=== PATIENT | female | born 1975 | race Hispanic/Latino ===

== ENCOUNTER 2020-07-02 19:21 | Inpatient (IN) | payer OTHER ==
[~2020-07-02] VITALS: Ht 152.4 cm; Wt 78.0 kg
--- NOTE | 2020-07-02 21:23 | Emergency Department Note ---
History of Present Illnes History of Present Illness Chief Complaint: General Medicine Complaints History of Present Illness This is a 44 year old female PRESENTS TO ED WITH REPORT OF HGB 5; PT HAD LABS DRAWN YESTERDAY PRIOR TO PAP SMEAR AT [facility] [employer], RECEIVED CALL FROM MD'S OFFICE THIS AFTRNOON TO "GO TO THE ER FOR A BLOOD TRANSFUSION" PER PATIENT; PT STATES SHE HAS HEAVY IRREGULAR MENSTRUAL CYCLES AND HAS REQUIRED A BLOOD TRANSFUSION TWICE IN THE PAST . Historian: Patient Arrival Mode: Car Onset (how long ago): unknown Location: NONE Quality: ANEMIA Radiation: Reports non-radiation Severity: moderate Onset quality: gradual Timing of current episode: unable to specify Chronicity: recurrent Context: Denies recent illness, Denies recent surgery, Denies recent travel Relieving factors: none Exacerbating factors: none Associated symptoms: Reports weakness Treatments prior to arrival: none Past Medical/Family History Physician Review I have reviewed the patient's past medical and family history. Any updates have been documented here. Past Medical History Recent Fever: No Clinical Suspicion of Infectio: No New/Unexplained Change in Ment: No Other Medical History: IRREGULAR MENSTRAUL CYCLES WITH ANEMIA 2 BLOOD TRANSFUSIONS IN THE PAST Past Surgical History: None Social History Smoking Cessation: Never Smoker Alcohol Use: None Any Illegal Drug Use: No Family History Family history of heart diseas: No Review of Systems Review of Systems Constitutional: Reports no symptoms EENTM: Reports no symptoms Cardiovascular: Reports no symptoms Respiratory: Reports no symptoms Gastrointestinal: Reports no symptoms Genitourinary: Reports as per HPI Musculoskeletal: Reports no symptoms Integumentary: Reports no symptoms Neurological: Reports no symptoms Psychological: Reports no symptoms Endocrine: Reports no symptoms Hematological/Lymphatic: Reports no symptoms Physical Exam Related Data Allergies: Coded Allergies: No Known Allergies (Unverified , 07/02/20) Triage Vital Signs Vital Signs Date Time Temp Pulse Resp B/P (MAP) Pulse Ox O2 Delivery O2 Flow Rate FiO2 07/02/20 20:58 99.2 92 17 133/78 100 Room Air Vital signs reviewed: Yes Physical Exam CONSTITUTIONAL Constitutional: Present well-developed, Present well-nourished; Absent distressed HENT HENT: Present normocephalic, Present atraumatic, Present oropharynx clear/moist, Present nose normal HENT L/R: Present left ext ear normal, Present right ext ear normal EYES Eyes: Reports PERRL, Reports other (PALE CONJUNCTIVA) NECK Neck: Present ROM normal PULMONARY Pulmonary: Present effort normal, Present breath sounds normal CARDIOVASCULAR Cardiovascular: Present regular rhythm, Present heart sounds normal, Present capillary refill normal, Present normal rate GASTROINTESTINAL Abdominal: Present soft, Present nontender, Present bowel sounds normal GENITOURINARY Genitourinary: Present exam deferred SKIN Skin: Present warm, Present dry MUSCULOSKELETAL Musculoskeletal: Present ROM normal NEUROLOGICAL Neurological: Present alert, Present oriented x 3, Present no gross motor or sensory deficits PSYCHOLOGICAL Psychological: Present mood/affect normal, Present judgement normal Results Laboratory Laboratory Laboratory Tests Test 07/02/20 21:17 07/02/20 21:03 White Blood Count 6.18 x10e3/uL (4.8-10.8) Red Blood Count 4.14 x10e6/uL (3.6-5.1) Hemoglobin 5.5 g/dL (12.0-16.0) Hematocrit 23.2 % (34.2-44.1) Mean Corpuscular Volume 56.0 fL (81-99) Mean Corpuscular Hemoglobin 13.3 pg (28-32) Mean Corpuscular Hemoglobin Concent 23.7 g/dL (31-35) Red Cell Distribution Width 22.6 % (11.7-14.4) Platelet Count 243 x10e3/uL (140-360) Neutrophils (%) (Auto) 71.1 % (38.7-80.0) Lymphocytes (%) (Auto) 21.5 % (18.0-39.1) Monocytes (%) (Auto) 5.2 % (4.4-11.3) Eosinophils (%) (Auto) 1.6 % (0.0-6.0) Basophils (%) (Auto) 0.3 % (0.0-1.0) Neutrophils # (Auto) 4.4 (2.1-6.9) Lymphocytes # (Auto) 1.3 (1.0-3.2) Monocytes # (Auto) 0.3 (0.2-0.8) Eosinophils # (Auto) 0.1 (0.0-0.4) Basophils # (Auto) 0.0 (0.0-0.1) Absolute Immature Granulocyte (auto 0.02 x10e3/uL (0-0.1) Prothrombin Time 12.6 seconds (11.9-14.5) Prothromb Time International Ratio 0.90 Activated Partial Thromboplast Time 25.7 seconds (23.8-35.5) Sodium Level 139 mmol/L (136-145) Potassium Level 3.3 mmol/L (3.5-5.1) Chloride Level 103 mmol/L (98-107) Carbon Dioxide Level 25 mmol/L (22-29) Anion Gap 14.3 mmol/L (8-16) Blood Urea Nitrogen 9 mg/dL (7-26) Creatinine 0.65 mg/dL (0.57-1.11) Estimat Glomerular Filtration Rate > 60 ML/MIN (60-) BUN/Creatinine Ratio 14 (6-25) Glucose Level 90 mg/dL (74-118) Calcium Level 9.2 mg/dL (8.4-10.2) Total Bilirubin 0.8 mg/dL (0.2-1.2) Aspartate Amino Transf (AST/SGOT) 28 IU/L (5-34) Alanine Aminotransferase (ALT/SGPT) 32 IU/L (0-55) Alkaline Phosphatase 100 IU/L (40-150) Creatine Kinase 15 IU/L (29-168) Creatine Kinase MB 0.30 ng/mL (0-5.0) Troponin I < 0.001 ng/mL (0-0.300) Total Protein 7.6 g/dL (6.5-8.1) Albumin 3.6 g/dL (3.5-5.0) Globulin 4.0 g/dL (2.3-3.5) Albumin/Globulin Ratio 0.9 (0.8-2.0) Human Chorionic Gonadotropin, Qual Negative (NEGATIVE) Lab results reviewed: Yes Imaging Imaging results reviewed: Yes Impressions Procedure: [id number] DX/CHEST 2 VIEWS Exam Date: 07/02/20 Exam Time: 2200 REPORT STATUS: Signed EXAMINATION: CHEST 2 VIEWS INDICATION: ANEMIA COMPARISON: None FINDINGS: TUBES and LINES: None. LUNGS: Normal lung volumes. 2 adjacent nodular densities projecting over the mid left lung measuring 15 and 10 mm respectively. No consolidations. PLEURA: No pleural effusion or pneumothorax. HEART AND MEDIASTINUM: The cardiomediastinal silhouette is unremarkable. BONES AND SOFT TISSUES: No acute osseous lesion. Soft tissues are unremarkable. UPPER ABDOMEN: No free air under the diaphragm. IMPRESSION: 1. 2 adjacent nodular densities projecting over the mid left lung measuring up to 15 mm may represent vessels on end, but pulmonary nodules are not excluded. Comparison with outside imaging to establish stability is recommended. Otherwise, a nonemergent outpatient low-dose chest CT is recommended 2. No consolidation. Signed by: Phoebe Devine MD on 07/02/2020 10:42 PM Dictated By: PHOEBE DEVINE MD 41 Transcribed By: JUANCARLOS on 07/02/202241 COPY TO: CHARLINE ARIZA MD~ Assessment & Plan Medical Decision Making MDM PT WITH REPORTED HGB OF 5 CBC, CMP, TYPE AND SCREEN, PT/PTT, ORDERED TO EVAL FOR ANEMIA, COAGULOPATHY PT WITH HGB OF 5.[address] FRY ADMIT TO OBS, TRANSFUSE 2 UNITS PRBC'S, Assessment & Plan Final Impression: (1) Anemia (2) Symptomatic anemia Depart Disposition: ADMITTED Last Vital Signs Date Time Temp Pulse Resp B/P (MAP) Pulse Ox O2 Delivery O2 Flow Rate FiO2 07/02/20 20:58 99.2 92 17 133/78 100 Room Air CHARLINE ARIZA MD Jul 02, 2020 21:23
[2020-07-02 21:48] LABS: BASOPHILS % 0.3 % (0.0-1.0); EOSINOPHILS # (AUTO) 0.1 (0.0-0.4); EOSINOPHILS % 1.6 % (0.0-6.0); HEMATOCRIT 23.2 % (34.2-44.1); LYMPHOCYTES # (AUTO) 1.3 (1.0-3.2); LYMPHOCYTES % 21.5 % (18.0-39.1); MEAN CORPUSCULAR HEMOGLOBIN 13.3 pg (28-32); MEAN CORPUSCULAR HGB CONC 23.7 g/dL (31-35); MONOCYTES # (AUTO) 0.3 (0.2-0.8); MONOCYTES % 5.2 % (4.4-11.3); NEUTROPHILS # (AUTO) 4.4 (2.1-6.9); NEUTROPHILS % 71.1 % (38.7-80.0); PLATELET COUNT 243 x10e3/uL (140-360); RED BLOOD COUNT 4.14 x10e6/uL (3.6-5.1); RED CELL DISTRIBUTION WIDTH 22.6 % (11.7-14.4)
[2020-07-02 22:18] LABS: INR 0.9; PROTHROMBIN TIME 12.6 seconds (11.9-14.5)
[2020-07-02 22:19] LABS: PARTIAL THROMBOPLASTIN TIME 25.7 seconds (23.8-35.5)
[2020-07-02 22:24] LABS: ALANINE AMINOTRANSFERASE 32 IU/L (0-55); ALBUMIN 3.6 g/dL (3.5-5.0); ALBUMIN/GLOBULIN RATIO 0.9 (0.8-2.0); ALKALINE PHOSPHATASE 100 IU/L (40-150); ANION GAP 14.3 mmol/L (8-16); BLOOD UREA NITROGEN 9 mg/dL (7-26); BUN/CREATININE RATIO 14 (6-25); CALCIUM 9.2 mg/dL (8.4-10.2); CARBON DIOXIDE 25 mmol/L (22-29); CHLORIDE 103 mmol/L (98-107); CREATINE KINASE 15 IU/L (29-168); CREATININE, SERUM 0.65 mg/dL (0.57-1.11); EST GLOMERULAR FILTRATION RATE > 60 ML/MIN (60-); GLUCOSE 90 mg/dL (74-118); POTASSIUM 3.3 mmol/L (3.5-5.1); SODIUM 139 mmol/L (136-145)
[2020-07-02 22:30] VITALS: BP 140/70
[2020-07-02 22:45] LABS: HEMOGLOBIN 5.5 g/dL (12.0-16.0)
--- NOTE | 2020-07-02 22:45 | NUR ---
REPORT RECEIVED FROM ER- 44 YR OLD FEMALE S/P PAP SMEAR HAD ABNORMAL MENSTRAUL BLEEDING AND LOW HGB- 5.5. PT HAS YOUNGER SON WITH HEMOPHELIA. PT WANTING HYSTERECTOMY. 20 G SL RT FA. SITE HEALTHY. PT DENIES PAIN. PT REFUSED PERIPADS STATING NOT HAVING HER MENSES NOW.CALL LIGHT WITHIN REACH. ORIENTED TO ROOM,GREATER [facility], BED IN LOW POSITION.
--- NOTE | 2020-07-02 22:45 | NUR ---
ER NOTIFIED AND AWARE OF CRITICAL LAB VALUES, HGB 5.5 AND HCT 23.2.
--- NOTE | 2020-07-02 22:46 | Diagnostic Imaging Report ---
EXAMINATION: CHEST 2 VIEWS INDICATION: ANEMIA COMPARISON: None FINDINGS: TUBES and LINES: None. LUNGS: Normal lung volumes. 2 adjacent nodular densities projecting over the mid left lung measuring 15 and 10 mm respectively. No consolidations. PLEURA: No pleural effusion or pneumothorax. HEART AND MEDIASTINUM: The cardiomediastinal silhouette is unremarkable. BONES AND SOFT TISSUES: No acute osseous lesion. Soft tissues are unremarkable. UPPER ABDOMEN: No free air under the diaphragm. IMPRESSION: 1. 2 adjacent nodular densities projecting over the mid left lung measuring up to 15 mm may represent vessels on end, but pulmonary nodules are not excluded. Comparison with outside imaging to establish stability is recommended. Otherwise, a nonemergent outpatient low-dose chest CT is recommended 2. No consolidation. Signed by: Tristan Willson MD on 07/02/2020 10:42 PM
[2020-07-02] MEDS ORDERED: SODIUM CHLORIDE 0.9% 250ML 250 ML IV ONE (23:15)
[2020-07-02 23:25] LABS: CLARITY,URINE CLOUDY (CLEAR); COLOR,URINE AMBER (YELLOW); LEUKOCYTE ESTERASE ,URINE TRACE (NEGATIVE)
[2020-07-02 23:26] LABS: NITRITE,URINE NEGATIVE (NEGATIVE)
[2020-07-02 23:28] LABS: BACTERIA,URINE MANY /HPF; BILIRUBIN,URINE SMALL (NEGATIVE); EPITHELIAL CELLS,URINE MANY /LPF; KETONES,URINE TRACE (NEGATIVE); PROTEIN,URINE DIPSTICK 1+ (NEGATIVE); RBC,URINE >50 /HPF (0-5); URINE UROBILINOGEN 1 mg/dL (0.2 - 1); WBC,URINE (MAN) >50 /HPF (0-5)
--- OUTSIDE RECORDS SUMMARY | 2020-07-02 23:39 | XMS REPORT | Continuity of Care Document ---
Author Author [facility] t Organization [facility] Address [phone] Phone Unavailable Care Team Providers Care Wire Products Inspector Name Role Phone Bonnie ARIZA Attphys Unavailable Alphonso Loera Attphys Varsha Bai Attphys Unavailable Gonzalez Schaffer Attphys Unavailable Alphonso Loera Unavailable Payers Payer Name Policy Type Policy Number Effective Date Expiration Date S ource Problems Condition Name Condition Details Condition Category Status Onset Date Resolution Date Last Treatment Date Treating Clinician Comments Source Pap smear Condition Active 2020-07-01 00:00:00 12:17:21 Rafa Loera [email or web address] [facility] Mammogram not high risk screening Condition Active 07-01 00:00:00 2020-07-01 12:17:21 Rafa Loera A [facility] Abnormal uterine bleeding Condition Active 2020-07-01 00: 00:00 2020-07-01 12:17:21 Rafa Loera [facility] 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 Condition Active 2020-07-01 00:00:00 14-07-07 12:17:21 Luz Maria Rafa [email or web address] [facility] Allergies, Adverse Reactions, Alerts Allergy Name Allergy Type Status Severity Reaction(s) Onset Date Inacti ve Date Treating Clinician Comments Source No Known Allergies DA Active U 2017-03-11 00:00:00 [facility] Social History Social Habit Start Date Stop Date Quantity Comments Source drug use, illicit 2020-07-01 11:02:39 2020-07-01 11:02:39 Never [facility] alcohol use 2020-07-01 11:02:39 2020-07-01 11:02:39 Never [facility] passive cigarette smoke exposure 2020-07-01 11:02:39 2020-07-01 11:02 :39 No [facility] if the patient is using/has used a vapin g item, Current, Former, Never Used, Not asked 2020-07-01 11:02:39 2020-07-01 11:02:39 No L [facility] Smoking Status Start Date Stop Date Source Never smoked tobacco (finding) L [facility] Medications Ordered Medication Name Filled Medication Name Start Date Stop Da te Current Medication? Ordering Clinician Indication Dosage Frequency Signature (SIG) Comments Components Source SPRINTEC 28 (NORGESTIMATE-ETH ESTRADIOL) 0.25-35 MG-MCG TABS 2020-07-01 00:00:00 2021-07-01 00:00:00 Yes Rafa A Luz Maria 1 pill da tom po [facility] Vital Signs Vital Name Observation Time Observation Value Comments Source oxygen saturation, oximetry 2020-07-01 11:02:39 99 % [facility] blood pressure, diastolic 2020-07-01 11:02:39 76 mm[Hg] [facility] blood pressure, systolic 2020-07-01 11:02:39 127 mm[Hg] [facility] respiratory rate E&M 2020-07-01 11:02:39 20 /min [facility] pulse rate 2020-07-01 11:02:39 94 /min [facility] 2020-07-01 11:02:39 oral [facility] temperature E&M 2020-07-01 11:02:39 98.3 [degF] Legac y [facility] weight E&M 2020-07-01 11:02:39 174.60 [lb_av] [facility] weight in kilograms E&M 2020-07-01 11:02:39 79.36 kg [facility] height in centimeters E&M 2020-07-01 11:02:39 149.86 cm [facility] Procedures This patient has no known procedures. Encounters Start Date/Time End Date/Time Encounter Type Admission Type Attendi [facility] Care Department Encounter ID Source 2020-07-01 00:00:00 2020-07-01 00:00:00 Office Visit Kendrick Loera [facility] Encounter/[id number] [facility] 2020-07-01 00:00:00 2020-07-01 00:00:00 Office Visit Portia puga Rafa Alphonso BaiVarsha Sonia [facility] Encounter/[id number] [facility] Results Test Description Test Time Test Comments Results Result Comments Source CHEST 2 VIEWS 2020-07-02 22:39:00 [facility] [address] [address] Patient Name: GONZALEZ JEFFERS MR #: [id number] : 1975 Age/Sex: 44/F Req #: [id number] Adm Physician: Ordered by: CHARLINE ARIZA MD Report #: [id number] Location: ER Room/Bed: Procedure: [id number] DX/CHEST 2 VIEWS Exam Date: 07/02/20 Exam Time: 2200 REPORT STATUS: Signed EXAMINATION: CHEST 2 VIEWS INDICATION: ANEMIA COMPARISON: None FINDINGS: TUBES and LINES: None. LUNGS: Normal lung volumes. 2 adjacent nodular densities projecting over the mid left lung measuring 15 and 10 mm respectively. No c onsolidations. PLEURA: No pleural effusion or pneumothorax. HEART AND MEDIASTINUM: The cardiomediastinal silhouette is unremarkable. BONES AND SOFT TISSUES: No acute osseous lesion. Soft tissues are unremarkable. UPPER ABDOMEN: No free air under the diaphragm. IMPRESSION: 1. 2 adjacent nodular densities projecting over the mid left lung measuring up to 15 mm may represent vessels on end, but pulmonary nodules are not excluded. Comparison with outside imaging to establish stability is recommended. Otherwise, a nonemergent outpatient low-dose chest CT is recommended 2. No consolidation. Signed by: Phoebe Devine MD on 07/02/2020 10:42 PM Dictated By: PHOEBE DEVINE MD 41 Transcribed By: JUANCARLOS on 07/02/202241 COPY TO: CHARLINE ARIZA MD BASIC METABOLIC PANEL 2019-06-17 09:06:00 Test Item SODIUM (test code = NA) 141 mmol/L 136-145 N POTASSIUM (test code = K) 3.5 mmol/L 3.5-5.1 N CHLORIDE (test code = CL) 110.0 mmol/L 98-107 H CARBON DIOXIDE (test code = CO2) 25.0 mmol/L 21-32 N ANION GAP (test code = GAP) 9.5 10-20 L GLUCOSE (test code = GLU) 110 mg/dL 74-106 H BLOOD UREA NITROGEN (test code = BUN) 9 mg/dL 7-18 N GLOMERULAR FILTRATION RATE (test code = GFR) > 60 mL/min >=60 Estimated GFR by using Modified MDRD formula.Chronic kidney disease is defined as either kidney damageor GFR <60 mL/min/1.73 m2 for >3 months. CREATININE (test code = CREAT) 0.40 mg/dL 0.55-1.02 L Note change in reference range due to change in reagent. BUN/CREATININE RATIO (test code = BUN/CREA) 21.0 10-20 H CALCIUM (test code = CA) 8.5 mg/dL 8.5-10.1 N PT RECEIVING BLOOD, COME AROUND 0700 PER RN NATALYA V.LAB.1 06/17/[id number] 2019-06-17 09:06:00* Test Item Value Reference Range Interpretation Comments MAGNESIUM (test code = MAG) 2.1 mg/dL 1.8-2.4 N PT RECEIVING BLOOD, COME AROUND 0700 PER RN NATALYA V.LAB.CS1 06/17/[id number] W/AUTO [id number] 09:00:00* Test Item Value Reference Range Interpretation Comments WHITE BLOOD CELL (test code = WBC) 5.3 K/mm3 4.5-12.5 N RED BLOOD CELL (test code = RBC) 4.26 mill/mm3 3.7-5.2 N HEMOGLOBIN (test code = HGB) 7.6 gram/dL 11.5-15.5 L RESULT VERIFIED BY REPEAT ANALYSIS HEMATOCRIT (test code = HCT) 27.6 % 36.0-46.0 L MEAN CELL VOLUME (test code = MCV) 64.8 fL 80-98 L RESULT VERIFIED BY REPEAT ANALYSIS MEAN CELL HGB (test code = MCH) 17.8 picogram 27.0-33.0 L MEAN CELL HGB CONCETRATION (test code = MCHC) 27.5 gram/dL 33.0-36. 0 L RED CELL DISTRIBUTION WIDTH (test code = RDW) 30.2 % 11.6-16. 2 H RED CELL DISTRIBUTION WIDTH SD (test code = RDW-SD) 65.5 fL 37 .0-51.0 H PLATELET COUNT (test code = PLT) 267 K/mm3 150-450 RESULT VERIFIED BY REPEAT ANALYSIS MEAN PLATELET VOLUME (test code = MPV) TEST NOT PERFORMED fL 6.7-11 .0 NEUTROPHIL % (test code = NT%) 67.3 % 39.0-69.0 N IMMATURE GRANULOCYTE % (test code = IG%) 0.4 % 0.0-5.0 N LYMPHOCYTE % (test code = LY%) 24.5 % 25.0-55.0 L MONOCYTE % (test code = MO%) 4.4 % 0.0-10.0 N EOSINOPHIL % (test code = EO%) 3.0 % 0.0-5.0 N BASOPHIL % (test code = BA%) 0.4 % 0.0-1.0 N NUCLEATED RBC % (test code = NRBC%) 0.4 % 0-0 H NEUTROPHIL # (test code = NT#) 3.54 K/mm3 1.8-7.7 N IMMATURE GRANULOCYTE # (test code = IG#) 0.02 x10 3/uL 0-0.03 N LYMPHOCYTE # (test code = LY#) 1.29 K/mm3 1.0-5.0 N MONOCYTE # (test code = MO#) 0.23 K/mm3 0-0.8 N EOSINOPHIL # (test code = EO#) 0.16 K/mm3 0.0-0.5 N BASOPHIL # (test code = BA#) 0.02 K/mm3 0.0-0.2 N NUCLEATED RBC # (test code = NRBC#) 0.02 K/mm3 0.0-0.1 N MANUAL DIFF REQUIRED (test code = MDIFF) NO, ONLY SCAN NEEDED PT RECEIVING BLOOD, COME AROUND 0700 PER SHIRA HOANG V.[facility] 0643 DIFFERENTIAL [id number] 09:00:00* Test Item Value Reference Range Interpretation Comments STAIN ACCEPTABILITY (test code = STN ACCEPTABLE) STAIN ACCEPTABLE HYPOCHROMIA (test code = HYPO) 1+ ANISOCYTOSIS (test code = ANISO) 2+ MICROCYTOSIS (test code = MICR) 2+ PLATELET ESTIMATE (test code = PLTEST) ADEQUATE PLATELET MORPHOLOGY (test code = PLTMORPH) SIZE VARIABLE PT RECEIVING BLOOD, COME AROUND 0700 PER SHIRA HOANG V.[facility] 0643CBC W/AUTO [id number] 08:51:00* Test Item Value Reference Range Interpretation Comments WHITE BLOOD CELL (test code = WBC) 5.3 K/mm3 4.5-12.5 N RED BLOOD CELL (test code = RBC) 4.26 mill/mm3 3.7-5.2 N HEMOGLOBIN (test code = HGB) 7.6 gram/dL 11.5-15.5 L RESULT VERIFIED BY REPEAT ANALYSIS HEMATOCRIT (test code = HCT) 27.6 % 36.0-46.0 L MEAN CELL VOLUME (test code = MCV) 64.8 fL 80-98 L RESULT VERIFIED BY REPEAT ANALYSIS MEAN CELL HGB (test code = MCH) 17.8 picogram 27.0-33.0 L MEAN CELL HGB CONCETRATION (test code = MCHC) 27.5 gram/dL 33.0-36. 0 L RED CELL DISTRIBUTION WIDTH (test code = RDW) 30.2 % 11.6-16. 2 H RED CELL DISTRIBUTION WIDTH SD (test code = RDW-SD) 65.5 fL 37 .0-51.0 H PLATELET COUNT (test code = PLT) 267 K/mm3 150-450 RESULT VERIFIED BY REPEAT ANALYSIS MEAN PLATELET VOLUME (test code = MPV) TEST NOT PERFORMED fL 6.7-11 .0 NEUTROPHIL % (test code = NT%) 67.3 % 39.0-69.0 N IMMATURE GRANULOCYTE % (test code = IG%) 0.4 % 0.0-5.0 N LYMPHOCYTE % (test code = LY%) 24.5 % 25.0-55.0 L MONOCYTE % (test code = MO%) 4.4 % 0.0-10.0 N EOSINOPHIL % (test code = EO%) 3.0 % 0.0-5.0 N BASOPHIL % (test code = BA%) 0.4 % 0.0-1.0 N NUCLEATED RBC % (test code = NRBC%) 0.4 % 0-0 H NEUTROPHIL # (test code = NT#) 3.54 K/mm3 1.8-7.7 N IMMATURE GRANULOCYTE # (test code = IG#) 0.02 x10 3/uL 0-0.03 N LYMPHOCYTE # (test code = LY#) 1.29 K/mm3 1.0-5.0 N MONOCYTE # (test code = MO#) 0.23 K/mm3 0-0.8 N EOSINOPHIL # (test code = EO#) 0.16 K/mm3 0.0-0.5 N BASOPHIL # (test code = BA#) 0.02 K/mm3 0.0-0.2 N NUCLEATED RBC # (test code = NRBC#) 0.02 K/mm3 0.0-0.1 N MANUAL DIFF REQUIRED (test code = MDIFF) NO, ONLY SCAN NEEDED PT RECEIVING BLOOD, COME AROUND 0700 PER RN NATALYA V.LAB.CS 0643 DIFFERENTIAL [id number] 08:51:00* Test Item Value Reference Range Interpretation Comments STAIN ACCEPTABILITY (test code = STN ACCEPTABLE) CABOT RINGS (test code = CAB) MORPHOLOGY COMMENT (test code = MOC) PLATELET ESTIMATE (test code = PLTEST) PLATELET MORPHOLOGY (test code = PLTMORPH) PT RECEIVING BLOOD, COME AROUND 0700 PER SHIRA HOANG V.LAB.CS 0643CBC W/AUTO [id number] 08:51:00* Test Item Value Reference Range Interpretation Comments WHITE BLOOD CELL (test code = WBC) 5.3 K/mm3 4.5-12.5 N RED BLOOD CELL (test code = RBC) 4.26 mill/mm3 3.7-5.2 N HEMOGLOBIN (test code = HGB) 7.6 gram/dL 11.5-15.5 L RESULT VERIFIED BY REPEAT ANALYSIS HEMATOCRIT (test code = HCT) 27.6 % 36.0-46.0 L MEAN CELL VOLUME (test code = MCV) 64.8 fL 80-98 L RESULT VERIFIED BY REPEAT ANALYSIS MEAN CELL HGB (test code = MCH) 17.8 picogram 27.0-33.0 L MEAN CELL HGB CONCETRATION (test code = MCHC) 27.5 gram/dL 33.0-36. 0 L RED CELL DISTRIBUTION WIDTH (test code = RDW) 30.2 % 11.6-16. 2 H RED CELL DISTRIBUTION WIDTH SD (test code = RDW-SD) 65.5 fL 37 .0-51.0 H PLATELET COUNT (test code = PLT) 267 K/mm3 150-450 RESULT VERIFIED BY REPEAT ANALYSIS MEAN PLATELET VOLUME (test code = MPV) TEST NOT PERFORMED fL 6.7-11 .0 NEUTROPHIL % (test code = NT%) 67.3 % 39.0-69.0 N IMMATURE GRANULOCYTE % (test code = IG%) 0.4 % 0.0-5.0 N LYMPHOCYTE % (test code = LY%) 24.5 % 25.0-55.0 L MONOCYTE % (test code = MO%) 4.4 % 0.0-10.0 N EOSINOPHIL % (test code = EO%) 3.0 % 0.0-5.0 N BASOPHIL % (test code = BA%) 0.4 % 0.0-1.0 N NUCLEATED RBC % (test code = NRBC%) 0.4 % 0-0 H NEUTROPHIL # (test code = NT#) 3.54 K/mm3 1.8-7.7 N IMMATURE GRANULOCYTE # (test code = IG#) 0.02 x10 3/uL 0-0.03 N LYMPHOCYTE # (test code = LY#) 1.29 K/mm3 1.0-5.0 N MONOCYTE # (test code = MO#) 0.23 K/mm3 0-0.8 N EOSINOPHIL # (test code = EO#) 0.16 K/mm3 0.0-0.5 N BASOPHIL # (test code = BA#) 0.02 K/mm3 0.0-0.2 N NUCLEATED RBC # (test code = NRBC#) 0.02 K/mm3 0.0-0.1 N MANUAL DIFF REQUIRED (test code = MDIFF) NO, ONLY SCAN NEEDED PT RECEIVING BLOOD, COME AROUND 0700 PER RN NATALYA V.LAB.107 0643 DIFFERENTIAL [id number] 08:51:00* Test Item Value Reference Range Interpretation Comments STAIN ACCEPTABILITY (test code = STN ACCEPTABLE) MORPHOLOGY COMMENT (test code = MOC) PLATELET ESTIMATE (test code = PLTEST) PLATELET MORPHOLOGY (test code = PLTMORPH) PT RECEIVING BLOOD, COME AROUND 0700 PER RN NATALYA V.LAB.107 0643CBC W/AUTO [id number] 08:51:00* Test Item Value Reference Range Interpretation Comments WHITE BLOOD CELL (test code = WBC) 5.3 K/mm3 4.5-12.5 N RED BLOOD CELL (test code = RBC) 4.26 mill/mm3 3.7-5.2 N HEMOGLOBIN (test code = HGB) 7.6 gram/dL 11.5-15.5 L RESULT VERIFIED BY REPEAT ANALYSIS HEMATOCRIT (test code = HCT) 27.6 % 36.0-46.0 L MEAN CELL VOLUME (test code = MCV) 64.8 fL 80-98 L RESULT VERIFIED BY REPEAT ANALYSIS MEAN CELL HGB (test code = MCH) 17.8 picogram 27.0-33.0 L MEAN CELL HGB CONCETRATION (test code = MCHC) 27.5 gram/dL 33.0-36. 0 L RED CELL DISTRIBUTION WIDTH (test code = RDW) 30.2 % 11.6-16. 2 H RED CELL DISTRIBUTION WIDTH SD (test code = RDW-SD) 65.5 fL 37 .0-51.0 H PLATELET COUNT (test code = PLT) 267 K/mm3 150-450 RESULT VERIFIED BY REPEAT ANALYSIS MEAN PLATELET VOLUME (test code = MPV) TEST NOT PERFORMED fL 6.7-11 .0 NEUTROPHIL % (test code = NT%) 67.3 % 39.0-69.0 N IMMATURE GRANULOCYTE % (test code = IG%) 0.4 % 0.0-5.0 N LYMPHOCYTE % (test code = LY%) 24.5 % 25.0-55.0 L MONOCYTE % (test code = MO%) 4.4 % 0.0-10.0 N EOSINOPHIL % (test code = EO%) 3.0 % 0.0-5.0 N BASOPHIL % (test code = BA%) 0.4 % 0.0-1.0 N NUCLEATED RBC % (test code = NRBC%) 0.4 % 0-0 H NEUTROPHIL # (test code = NT#) 3.54 K/mm3 1.8-7.7 N IMMATURE GRANULOCYTE # (test code = IG#) 0.02 x10 3/uL 0-0.03 N LYMPHOCYTE # (test code = LY#) 1.29 K/mm3 1.0-5.0 N MONOCYTE # (test code = MO#) 0.23 K/mm3 0-0.8 N EOSINOPHIL # (test code = EO#) 0.16 K/mm3 0.0-0.5 N BASOPHIL # (test code = BA#) 0.02 K/mm3 0.0-0.2 N NUCLEATED RBC # (test code = NRBC#) 0.02 K/mm3 0.0-0.1 N MANUAL DIFF REQUIRED (test code = MDIFF) NO, ONLY SCAN NEEDED PT RECEIVING BLOOD, COME AROUND 0700 PER SHIRA ReddyLAB. 0643 DIFFERENTIAL [id number] 08:51:00* Test Item Value Reference Range Interpretation Comments STAIN ACCEPTABILITY (test code = STN ACCEPTABLE) MORPHOLOGY COMMENT (test code = MOC) PLATELET ESTIMATE (test code = PLTEST) PLATELET MORPHOLOGY (test code = PLTMORPH) PT RECEIVING BLOOD, COME AROUND 0700 PER SHIRA ReddyLAB. 0643CBC W/AUTO [id number] 08:51:00* Test Item Value Reference Range Interpretation Comments WHITE BLOOD CELL (test code = WBC) 5.3 K/mm3 4.5-12.5 N RED BLOOD CELL (test code = RBC) 4.26 mill/mm3 3.7-5.2 N HEMOGLOBIN (test code = HGB) 7.6 gram/dL 11.5-15.5 L RESULT VERIFIED BY REPEAT ANALYSIS HEMATOCRIT (test code = HCT) 27.6 % 36.0-46.0 L MEAN CELL VOLUME (test code = MCV) 64.8 fL 80-98 L RESULT VERIFIED BY REPEAT ANALYSIS MEAN CELL HGB (test code = MCH) 17.8 picogram 27.0-33.0 L MEAN CELL HGB CONCETRATION (test code = MCHC) 27.5 gram/dL 33.0-36. 0 L RED CELL DISTRIBUTION WIDTH (test code = RDW) 30.2 % 11.6-16. 2 H RED CELL DISTRIBUTION WIDTH SD (test code = RDW-SD) 65.5 fL 37 .0-51.0 H PLATELET COUNT (test code = PLT) 267 K/mm3 150-450 RESULT VERIFIED BY REPEAT ANALYSIS MEAN PLATELET VOLUME (test code = MPV) TEST NOT PERFORMED fL 6.7-11 .0 NEUTROPHIL % (test code = NT%) 67.3 % 39.0-69.0 N IMMATURE GRANULOCYTE % (test code = IG%) 0.4 % 0.0-5.0 N LYMPHOCYTE % (test code = LY%) 24.5 % 25.0-55.0 L MONOCYTE % (test code = MO%) 4.4 % 0.0-10.0 N EOSINOPHIL % (test code = EO%) 3.0 % 0.0-5.0 N BASOPHIL % (test code = BA%) 0.4 % 0.0-1.0 N NUCLEATED RBC % (test code = NRBC%) 0.4 % 0-0 H NEUTROPHIL # (test code = NT#) 3.54 K/mm3 1.8-7.7 N IMMATURE GRANULOCYTE # (test code = IG#) 0.02 x10 3/uL 0-0.03 N LYMPHOCYTE # (test code = LY#) 1.29 K/mm3 1.0-5.0 N MONOCYTE # (test code = MO#) 0.23 K/mm3 0-0.8 N EOSINOPHIL # (test code = EO#) 0.16 K/mm3 0.0-0.5 N BASOPHIL # (test code = BA#) 0.02 K/mm3 0.0-0.2 N NUCLEATED RBC # (test code = NRBC#) 0.02 K/mm3 0.0-0.1 N MANUAL DIFF REQUIRED (test code = MDIFF) NO, ONLY SCAN NEEDED PT RECEIVING BLOOD, COME AROUND 0700 PER SHIRA ReddyLAB.CS107/24/19 0643 DIFFERENTIAL [id number] 08:51:00* Test Item Value Reference Range Interpretation Comments STAIN ACCEPTABILITY (test code = STN ACCEPTABLE) CABOT RINGS (test code = CAB) MORPHOLOGY COMMENT (test code = MOC) PLATELET ESTIMATE (test code = PLTEST) PLATELET MORPHOLOGY (test code = PLTMORPH) PT RECEIVING BLOOD, COME AROUND 0700 PER SHIRA CHARLES.CS107/ 0643- CT ABD PELVIS [id number] 18:48:00 Name: GONZALEZ JEFFERS [facility] : 1975 Age/S: 43 / F [address] [facility] Unit #: [id number] Loc: LILO Singh [address] Phys: Flor Santa NP Acct: [id number] Dis Date: Status: REG ER PHONE #: [phone] Exam Date: 06/16/2019 1701 FAX #: [phone] Reason: RLQA pain EXAMS: CPT CODE: [id number] CT ABD PELVIS W/CONT [id number] REASON FOR EXAM: RLQA pain EXAM ORDER DATE: 06/16/2019 12:15 PM Ordering M.D.: Flor Santa NP PROCEDURE: - CT ABD PELVIS W/CONT contrast-enhanced axial CT images were acquired through the abdomen/pelvis at 5 mm intervals. Sagittal and coronal reformatted images were generated. Automated exposure control was utilized for this reduction. Phases of contrast: venous and delayed COMPARISON: Pelvic ultrasound earlier today at 1:26 PM FINDINGS: Visualized thorax: Normal Hepatobiliary system: Cholelithiasis. No pericholecystic fluid or gallbladder wall thickening to suggest cholecystitis. Pancreas: Normal Spleen: Normal Adrenal glands: Normal Genitourinary system: Hypodense cortical lesion in the left kidney measuring up to 2.2 x 1.5 cm cross-sectionally. The density of this lesion measures approximately 43 Hounsfield units which is unchanged between the venous and delayed phase imaging. This is greater than expected for a simple cyst however the stability of the density suggests that there is no contrast enhancement or washout. This may represent a hemorrhagic cyst. The rest of the genitourinary structures are grossly within normal limits. Gastrointestinal tract and appendix: Normal. Specifically the appendix, ascending colon, and the cecum are within normal limits. 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 No omental or mesenteric masses. No abnormal lymph nodes. 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 Left renal cortical hypodensity with no change in density from the venous to the delayed images. This may represent a hemorrhagic cyst. This can be fur ther evaluated with a renal ultrasound and/or renal protocol CT scan on a nonemergent basis. Electronically Signed by Yaniv Garcia MD on 05/26 at 1848 Reported and signed by: Yaniv Garcia MD CC: Flor Santa NP Technologist:RT WALTER(R) CT CTDI: DLP: Trnsc b Date/Time: 06/16/2019 (1847) [email or web address] Orig Print D/T: S: 06/16/2019 (1850) PAGE 2 Signed Report CBC W/O [id number] 15:20:00* Test Item Value Reference Range Interpretation Comments WHITE BLOOD CELL (test code = WBC) 5.6 K/mm3 4.5-12.5 N RED BLOOD CELL (test code = RBC) 3.93 mill/mm3 3.7-5.2 N HEMOGLOBIN (test code = HGB) 5.3 gram/dL 11.5-15.5 L HEMATOCRIT (test code = HCT) 22.6 % 36.0-46.0 L MEAN CELL VOLUME (test code = MCV) 57.5 fL 80-98 L MEAN CELL HGB (test code = MCH) 13.5 picogram 27.0-33.0 L MEAN CELL HGB CONCETRATION (test code = MCHC) 23.5 gram/dL 33.0-36. 0 L RED CELL DISTRIBUTION WIDTH (test code = RDW) 22.0 % 11.6-16. 2 H PLATELET COUNT (test code = PLT) 331 K/mm3 150-450 N MEAN PLATELET VOLUME (test code = MPV) TEST NOT PERFORMED fL 6.7-11 .0 BASIC METABOLIC [id number] 14:44:00* Test Item Value Reference Range Interpretation Comments SODIUM (test code = NA) 141 mmol/L 136-145 N POTASSIUM (test code = K) 3.7 mmol/L 3.5-5.1 N CHLORIDE (test code = CL) 109.0 mmol/L 98-107 H CARBON DIOXIDE (test code = CO2) 26.0 mmol/L 21-32 N ANION GAP (test code = GAP) 9.7 10-20 L GLUCOSE (test code = GLU) 94 mg/dL 74-106 N BLOOD UREA NITROGEN (test code = BUN) 11 mg/dL 7-18 N GLOMERULAR FILTRATION RATE (test code = GFR) > 60 mL/min >=60 Estimated GFR by using Modified MDRD formula.Chronic kidney disease is defined as either kidney damageor GFR <60 mL/min/1.73 m2 for >3 months. CREATININE (test code = CREAT) 0.60 mg/dL 0.55-1.02 N Note change in reference range due to change in reagent. BUN/CREATININE RATIO (test code = BUN/CREA) 19.8 10-20 N CALCIUM (test code = CA) 8.8 mg/dL 8.5-10.1 N HEPATIC FUNCTION [id number] 14:44:00* Test Item Value Reference Range Interpretation Comments TOTAL PROTEIN (test code = PROT) 7.5 gram/dL 6.4-8.2 N ALBUMIN (test code = ALB) 3.5 g/dL 3.4-5.0 N GLOBULIN (test code = GLOB) 4.0 gram/dL 2.7-4.2 N ALBUMIN/GLOBULIN RATIO (test code = A/G) 0.9 0.75-1.50 N BILIRUBIN TOTAL (test code = BILT) 0.70 mg/dL 0.0-1.0 N BILIRUBIN DIRECT (test code = BILD) 0.21 mg/dL 0.0-0.20 H SGOT/AST (test code = AST) 10 IUnit/L 15-37 L SGPT/ALT (test code = ALT) 18 IUnit/L 12-78 N ALKALINE PHOSPHATASE TOTAL (test code = ALKP) 95 IUnit/L 45-117 N Note change in reference range due to change in reagent. [id number] 14:44:00* Test Item Value Reference Range Interpretation Comments LIPASE (test code = LIP) 36 U/L 73.0-393.0 L HCG SERUM [id number] 14:44:00* Test Item Value Reference Range Interpretation Comments HCG SERUM QUAL (test code = HCGQL) NEGATIVE NEGATIVE This HCGQL test is NOT applicable for MALE patients.Check with nurse about probable order error.If Tumor Marker Test needed, nurse should order test "HCGTU"(Test #550.16620) BASIC METABOLIC [id number] 14:27:00* Test Item Value Reference Range Interpretation Comments SODIUM (test code = NA) 141 mmol/L 136-145 N POTASSIUM (test code = K) 3.7 mmol/L 3.5-5.1 N CHLORIDE (test code = CL) 109.0 mmol/L 98-107 H CARBON DIOXIDE (test code = CO2) mmol/L 21-32 ANION GAP (test code = GAP) 10-20 GLUCOSE (test code = GLU) mg/dL 74-106 BLOOD UREA NITROGEN (test code = BUN) mg/dL 7-18 GLOMERULAR FILTRATION RATE (test code = GFR) mL/min >=60 CREATININE (test code = CREAT) mg/dL 0.55-1.02 BUN/CREATININE RATIO (test code = BUN/CREA) 10-20 CALCIUM (test code = CA) mg/dL 8.5-10.1 HEPATIC FUNCTION [id number] 14:27:00* Test Item Value Reference Range Interpretation Comments TOTAL PROTEIN (test code = PROT) gram/dL 6.4-8.2 ALBUMIN (test code = ALB) g/dL 3.4-5.0 GLOBULIN (test code = GLOB) gram/dL 2.7-4.2 ALBUMIN/GLOBULIN RATIO (test code = A/G) 0.75-1.50 BILIRUBIN TOTAL (test code = BILT) mg/dL 0.0-1.0 BILIRUBIN DIRECT (test code = BILD) mg/dL 0.0-0.20 SGOT/AST (test code = AST) IUnit/L 15-37 SGPT/ALT (test code = ALT) IUnit/L 12-78 ALKALINE PHOSPHATASE TOTAL (test code = ALKP) IUnit/L 45-117 [id number] 14:27:00* Test Item Value Reference Range Interpretation Comments LIPASE (test code = LIP) U/L 73.0-393.0 HCG SERUM [id number] 14:27:00* Test Item Value Reference Range Interpretation Comments HCG SERUM QUAL (test code = HCGQL) NEGATIVE NEGATIVE This HCGQL test is NOT applicable for MALE patients.Check with nurse about probable order error.If Tumor Marker Test needed, nurse should order test "HCGTU"(Test #550.97015) - [place] TRANSVAGINAL NON [id number] 14:27:00 Name: GONZALEZ JEFFERS [facility] : 1975 Age/S: 43 / F [address] [facility] Unit #: [id number] Loc: [place] [address] Phys: Flor Santa NP Acct: [id number] Dis Date: Status: REG ER PHONE #: [phone] Exam Date: 06/16/2019 9580 FAX #: [phone] Reason: Pelvic Pain EXAMS: CPT CODE: [id number] [place] [address] HISTORY: Endovaginal bleeding. COMPARISON: Ultrasound from March 11, 2017. Transabdominal and transvaginal (for better endometrial and ovarian evaluation) pelvic ultrasound with color and Doppler flow and grayscale imaging. Anteverted uterus measured 10 x 6 x 6.6 cm. Heterogeneous echogenicity and coarse texture. No discrete fibroids. Endometrial thickness measured at 2.4 cm. No IUP noted. Visualized portions of the cervix are normal. Color and Doppler flow in either ovary with normal spectral waveform. Right ovary measured 2.1 x 1 x 2.1 cm. Left ovary with multiple follicles measured 2 x 2.6 x 2 cm. No free fluid IMPRESSION: Moderately thickened endometrium at 2.4 cm. No IUP. No fibroids. Color and Doppler flow in either ovary with normal spectral waveform. at 1427 Reported and signed by: Asa Schmidt M.D. CC: Flor Santa NP Technologist: MARSHALL KEENAN RT(R),RDMS Trnnyb Date/Time: 019 (1422) t.SDR.TH4 Orig Print D/T: S: 06/16/2019 (0794) Probe: [id number] PAGE 1 Signed Report - DUP AB/PEL/SC [id number] 14:27:00 Name: GONZALEZ JEFFERS [facility] : 1975 Age/S: 43 / F [address] [facility] Unit #: [id number] Loc: [place] [address] Phys: Kristina Santa NP Acct: [id number] Di s Date: Status: REG ER PHONE #: Exam Date: 06/16/2019 1358 FAX #: Reason: PELVIC PAIN EXAMS: CPT CODE: [id number] DUP AB/PEL/SC COMP 06690 HISTORY: Endovaginal blee ding. COMPARISON: Ultrasound from March 11, 2017. Tr ansabdominal and transvaginal (for better endometrial and ovarian evaluati on) pelvic ultrasound with color and Doppler flow and grayscale imaging. Anteverted uterus measured 10 x 6 x 6.6 cm. Heterogeneous echogenic ity and coarse texture. No discrete fibroids. Endometrial thickness measured at 2.4 cm. No IUP noted. Visualized portions of the cervix are no rmal. Color and Doppler flow in either ovary with normal spectral waveform. Right ovary measured 2.1 x 1 x 2.1 cm. Left ovary with multiple follicles measured 2 x 2.6 x 2 cm. No free fluid IMPRESSIO N: Moderately thickened endometrium at 2.4 cm. No IUP. No fibr oids. Color and Doppler flow in either ovary with normal spectral wavefo rm. at 1427 Reported and signed by: Asa Schmidt M.D. CC: Flor Santa NP Technologist: MARSHALL KEENAN RT(R),RDMS Trnnyb Date/Time: 019 (8627) t.SDR.TH4 Orig Print D/T: S: 06/16/2019 (7106) Probe: PAGE 1 Signed Report BASIC METABOLIC [id number] 14:26:00* Test Item Value Reference Range Interpretation Comments SODIUM (test code = NA) mmol/L 136-145 POTASSIUM (test code = K) mmol/L 3.5-5.1 CHLORIDE (test code = CL) mmol/L 98-107 CARBON DIOXIDE (test code = CO2) mmol/L 21-32 ANION GAP (test code = GAP) 10-20 GLUCOSE (test code = GLU) mg/dL 74-106 BLOOD UREA NITROGEN (test code = BUN) mg/dL 7-18 GLOMERULAR FILTRATION RATE (test code = GFR) mL/min >=60 CREATININE (test code = CREAT) mg/dL 0.55-1.02 BUN/CREATININE RATIO (test code = BUN/CREA) 10-20 CALCIUM (test code = CA) mg/dL 8.5-10.1 HEPATIC FUNCTION [id number] 14:26:00* Test Item Value Reference Range Interpretation Comments TOTAL PROTEIN (test code = PROT) gram/dL 6.4-8.2 ALBUMIN (test code = ALB) g/dL 3.4-5.0 GLOBULIN (test code = GLOB) gram/dL 2.7-4.2 ALBUMIN/GLOBULIN RATIO (test code = A/G) 0.75-1.50 BILIRUBIN TOTAL (test code = BILT) mg/dL 0.0-1.0 BILIRUBIN DIRECT (test code = BILD) mg/dL 0.0-0.20 SGOT/AST (test code = AST) IUnit/L 15-37 SGPT/ALT (test code = ALT) IUnit/L 12-78 ALKALINE PHOSPHATASE TOTAL (test code = ALKP) IUnit/L 45-117 [id number] 14:26:00* Test Item Value Reference Range Interpretation Comments LIPASE (test code = LIP) U/L 73.0-393.0 HCG SERUM [id number] 14:26:00* Test Item Value Reference Range Interpretation Comments HCG SERUM QUAL (test code = HCGQL) NEGATIVE NEGATIVE This HCGQL test is NOT applicable for MALE patients.Check with nurse about probable order error.If Tumor Marker Test needed, nurse should order test "HCGTU"(Test #[id number]) - US PELVIS [id number] 14:20:00 Name: GONZALEZ JEFFERS [facility] : 1975 Age/S: 43 / F [address] [facility] Unit #: [id number] Loc: [place] [address] Phys: Flor Santa NP Acct: [id number] Dis Date: Status: REG ER PHONE #: [phone] Exam Date: 06/16/2019 4613 FAX #: [phone] Reason: PELVIC PAIN EXAMS: CPT CODE: [id number] US PELVIS COMPLETE 05154 HISTORY: Endovaginal bleeding. COMPARISON: Ultrasound from March 11, 2017. Transabdominal and transvaginal (for better endometrial and ovarian evaluation) pelvic ultrasound with color and Doppler flow and grayscale imaging. Anteverted uterus measured 10 x 6 x 6.6 cm. Heterogeneous echogenicity and coarse texture. No discrete fibroids. Endometrial thickness measured at 2.4 cm. No IUP noted. Visualized portions of the cervix are normal. Color and Doppler flow in either ovary with normal spectral waveform. Right ovary measured 2.1 x 1 x 2.1 cm. Left ovary with multiple follicles measured 2 x 2.6 x 2 cm. No free fluid IMPRESSION: Moderately thickened endometrium at 2.4 cm. No IUP. No fibroids. Color and Doppler flow in either ovary with normal spectral waveform. at 1420 Reported and signed by: Asa Schmidt M.D. CC: Flor Santa NP Technologist: MARSHALL KEENAN RT(R),[facility]SO [facility] Date/Time: 019 (1420) t.SUMEETR.TH4 Orig Print D/T: S: 06/16/2019 (7790) Probe: PAGE 1 Signed Report
--- OUTSIDE RECORDS SUMMARY | 2020-07-02 23:39 | XMS REPORT ---
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 Rafa A Luz Maria ENCOUNTERS Date Type Provider Location Encounter Diagn osis - Ambulatory Encounter Rafa A Luz Maria Rafa A Luz Maria UNK - Ambulatory Encounter Rafa A Luz Maria Rafa A Luz Maria Varsha Schaffer System Operation Superintendent annual examMammog aisha not high risk screeningMammogram not high risk screeningAbnormal uterine bleedingMammogram not high risk screeningPap smear VITAL SIGNS Date Observation Value Provider oxygen saturation, oximetry 99 % Shirley a Sarbjit " method used to obtain blood pressure automatic Teresa Schaffer " Blood Pressure Position 01 sitting Teresa Schaffer " blood pressure, site #1 left arm Teresa galaviz " blood pressure, diastolic 76 mm[Hg] Teresa Schaffer " blood pressure, systolic 127 mm[Hg] Teresa V walterazquez " respiratory rate E&M 20 /min Teresa Delon joseph " pulse rate 94 /min Teresa Schaffer " temperature site oral Teresa Sarbjit " temperature E&M 98.3 [degF] Teresa Schaffer " weight E&M 174.60 lbs. Teresa Schaffer " weight in kilograms E&M 79.36 kg Teresa galaviz " height E&M 59 [in_i] Teresa Schaffer " height in centimeters E&M 149.86 cm Teresa Schaffer Allergies No Known Allergy Information REASON FOR REFERRAL Start Date - End Date Service - Ultrasound - Pelvic/Transvag inal - Mammogram - Screening RESULTS No Information Available HISTORY OF IMMUNIZATIONS No Information Available HISTORY OF MEDICATION USE Medication Instructions Dates Provider Comments SPRINTEC 28 0.25-35 MG-MCG ORAL TABLET 1 pill daily po 7 - Rafa Werner Luz Maria SOCIAL HISTORY Date Observation Value Provider drug use, illicit Never Teresa grey " alcohol use Never Teresa Schaffer " passive cigarette smoke exposure No Teresa Schaffer " if the patient is using/has used a vaping item, Current, Former, Never Used, Not asked No Teresa Schaffer " smoking status never smoker Teresa Schaffer FUNCTIONAL STATUS No Information Available MENTAL STATUS No Information Available MEDICAL EQUIPMENT No Information Available FAMILY HISTORY No Information Available INSURANCE PROVIDERS No Information Available ADVANCE DIRECTIVES No Information Available TREATMENT PLAN Date Name Pap w/HPV w rflx 16/18/45 (3 0+) TSH Rfx on Abnormal to Free T4 CBC With Differential/Platel et - - Est Patient Well Exam (40 - 64 Yrs) - [address] HISTORY OF PROCEDURES No Information Available GOALS No Information Available HEALTH CONCERNS No Information Available
--- OUTSIDE RECORDS SUMMARY | 2020-07-02 23:45 | XMS REPORT | Continuity of Care Document ---
Author Author [facility] t Organization [facility] Address [address] [place] [address] Phone Unavailable Care Team Providers Care Tile Helper Name Role Phone Bonnie ARIZA Attphys Unavailable Alphonso Loera Attphys Varsha Bai Attphys Unavailable Gonzalez Schaffer Attphys Unavailable Alphonso Loera Unavailable Payers Payer Name Policy Type Policy Number Effective Date Expiration Date S ource Problems Condition Name Condition Details Condition Category Status Onset Date Resolution Date Last Treatment Date Treating Clinician Comments Source Pap smear Condition Active 2020-07-01 00:00:00 12:17:21 Rafa Loera Basha [facility] Mammogram not high risk screening Condition Active 07-01 00:00:00 2020-07-01 12:17:21 Rafa Loera A [facility] Abnormal uterine bleeding Condition Active 2020-07-01 00: 00:00 2020-07-01 12:17:21 Rafa Loera [facility] 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 Condition Active 2020-07-01 00:00:00 14-07-07 12:17:21 Luz Maria Rafa Basha [facility] Allergies, Adverse Reactions, Alerts Allergy Name Allergy Type Status Severity Reaction(s) Onset Date Inacti ve Date Treating Clinician Comments Source No Known Allergies DA Active U 2017-03-11 00:00:00 [facility] Social History Social Habit Start Date Stop Date Quantity Comments Source drug use, illicit 2020-07-01 11:02:39 2020-07-01 11:02:39 Never [facility] alcohol use 2020-07-01 11:02:39 2020-07-01 11:02:39 Never [facility] passive cigarette smoke exposure 2020-07-01 11:02:39 2020-07-01 11:02 :39 No [facility] if the patient is using/has used a vapin g item, Current, Former, Never Used, Not asked 2020-07-01 11:02:39 2020-07-01 11:02:39 No L [facility] Smoking Status Start Date Stop Date Source Never smoked tobacco (finding) L [facility] Medications Ordered Medication Name Filled Medication Name Start Date Stop Da te Current Medication? Ordering Clinician Indication Dosage Frequency Signature (SIG) Comments Components Source SPRINTEC 28 (NORGESTIMATE-ETH ESTRADIOL) 0.25-35 MG-MCG TABS 2020-07-01 00:00:00 2021-07-01 00:00:00 Yes Rafa A Luz Maria 1 pill da tom po [facility] Vital Signs Vital Name Observation Time Observation Value Comments Source oxygen saturation, oximetry 2020-07-01 11:02:39 99 % [facility] blood pressure, diastolic 2020-07-01 11:02:39 76 mm[Hg] [facility] blood pressure, systolic 2020-07-01 11:02:39 127 mm[Hg] [facility] respiratory rate E&M 2020-07-01 11:02:39 20 /min [facility] pulse rate 2020-07-01 11:02:39 94 /[facility] 2020-07-01 11:02:39 oral Lega [facility] temperature E&M 2020-07-01 11:02:39 98.3 [degF] Legac y [facility] weight E&M 2020-07-01 11:02:39 174.60 [lb_av] [facility] weight in kilograms E&M 2020-07-01 11:02:39 79.36 kg [facility] height in centimeters E&M 2020-07-01 11:02:39 149.86 cm [facility] Procedures This patient has no known procedures. Encounters Start Date/Time End Date/Time Encounter Type Admission Type Attendi [facility] Care Department Encounter ID Source 2020-07-01 00:00:00 2020-07-01 00:00:00 Office Visit Kendrick Loera [facility] Encounter/[id number] [facility] 2020-07-01 00:00:00 2020-07-01 00:00:00 Office Visit Portia puga Rafa Alphonso BiaVarsha Sonia [facility] Encounter/[id number] [facility] Results Test Description Test Time Test Comments Results Result Comments Source CHEST 2 VIEWS 2020-07-02 22:39:00 [facility] [address] [address] Patient Name: GONZALEZ JEFFERS MR #: [id number] : 1975 Age/Sex: 44/F Req #: [id number] Adm Physician: Ordered by: CHARLINE ARIZA MD Report #: [id number] Location: ER Room/Bed: Procedure: [id number] DX/CHEST 2 VIEWS Exam Date: 07/02/20 Exam [...] COME AROUND 0700 PER RN NATALYA V.LAB.1 06/17/[id number] 2019-06-17 09:06:00* Test Item Value Reference Range Interpretation Comments MAGNESIUM (test code = MAG) 2.1 mg/dL 1.8-2.4 N PT RECEIVING BLOOD, COME AROUND 0700 PER RN NATALYA V.LAB.CS1 06/17/245392NZF W/AUTO [id number] 09:00:00* Test Item Value Reference Range Interpretation [...] BLOOD, COME AROUND 0700 PER SHIRA HOANG V.LAB.[facility] 0643 DIFFERENTIAL [id number] 09:00:00* Test Item Value Reference Range Interpretation Comments STAIN ACCEPTABILITY (test code = STN ACCEPTABLE) STAIN ACCEPTABLE HYPOCHROMIA (test code = HYPO) 1+ ANISOCYTOSIS (test code = ANISO) 2+ MICROCYTOSIS (test code = MICR) 2+ PLATELET ESTIMATE (test code = PLTEST) ADEQUATE PLATELET MORPHOLOGY (test code = PLTMORPH) SIZE VARIABLE PT RECEIVING BLOOD, COME AROUND 0700 PER SHIRA HOANG V.LAB.[facility] 0643CBC W/AUTO [id number] 08:51:00* Test Item Value Reference Range Interpretation [...] 0700 PER RN NATALYA V.LAB.CS 0643 DIFFERENTIAL [id number] 08:51:00* Test Item Value Reference Range Interpretation Comments STAIN ACCEPTABILITY (test code = STN ACCEPTABLE) CABOT RINGS (test code = CAB) MORPHOLOGY COMMENT (test code = MOC) PLATELET ESTIMATE (test code = PLTEST) PLATELET MORPHOLOGY (test code = PLTMORPH) PT RECEIVING BLOOD, COME AROUND 0700 PER SHIRA HOANG V.LAB.CS 0643CBC W/AUTO [id number] 08:51:00* Test Item Value Reference Range Interpretation [...] 0700 PER RN NATALYA V.LAB.107 0643 DIFFERENTIAL [id number] 08:51:00* Test Item Value Reference Range Interpretation Comments STAIN ACCEPTABILITY (test code = STN ACCEPTABLE) MORPHOLOGY COMMENT (test code = MOC) PLATELET ESTIMATE (test code = PLTEST) PLATELET MORPHOLOGY (test code = PLTMORPH) PT RECEIVING BLOOD, COME AROUND 0700 PER RN NATALYA V.LAB.107 0643CBC W/AUTO [id number] 08:51:00* Test Item Value Reference Range Interpretation [...] AROUND 0700 PER SHIRA ReddyLAB. 0643 DIFFERENTIAL [id number] 08:51:00* Test Item Value Reference Range Interpretation Comments STAIN ACCEPTABILITY (test code = STN ACCEPTABLE) MORPHOLOGY COMMENT (test code = MOC) PLATELET ESTIMATE (test code = PLTEST) PLATELET MORPHOLOGY (test code = PLTMORPH) PT RECEIVING BLOOD, COME AROUND 0700 PER SHIRA ReddyLAB. 0643CBC W/AUTO [id number] 08:51:00* Test Item Value Reference Range Interpretation [...] AROUND 0700 PER SHIRA ReddyLAB.CS107/24/19 0643 DIFFERENTIAL [id number] 08:51:00* Test Item Value Reference Range Interpretation Comments STAIN ACCEPTABILITY (test code = STN ACCEPTABLE) CABOT RINGS (test code = CAB) MORPHOLOGY COMMENT (test code = MOC) PLATELET ESTIMATE (test code = PLTEST) PLATELET MORPHOLOGY (test code = PLTMORPH) PT RECEIVING BLOOD, COME AROUND 0700 PER SHIRA CHARLES.CS107/ 0643- CT ABD PELVIS W/[id number] 18:48:00 Name: GONZALEZ JEFFERS [facility] : 1975 Age/S: 43 / F [address] [facility] Unit #: [id number] Loc: [place] [address] Phys: Flor Santa NP Acct: [id number] Dis Date: Status: REG ER PHONE #: [phone] Exam Date: 06/16/2019 1701 FAX #: [phone] Reason: RLQA pain EXAMS: CPT CODE: [id number] CT ABD PELVIS W/CONT 63110 REASON FOR EXAM: RLQA pain EXAM ORDER [...] 1975 Age/S: 43 / F [address] [facility] Unit #: [id number] Loc: [place] [address] Ph ys: Flor Santa 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 ASSEMBLER Acct: [id number] Dis Date: Status: REG ER PHONE #: [phone] Exam Date: 06/16/2019 1701 FA X #: [phone] Reason: RLQA pain EXAMS: CPT CODE: [id number] CT ABD PELVIS W/CONT 53386 <Continued> Musculoskeletal structures and abdominal wall: Normal [...] (1850) PAGE 2 Signed Report CBC W/O [id number] 15:20:00* Test Item Value Reference Range Interpretation [...] NOT PERFORMED fL 6.7-11 .0 BASIC METABOLIC [id number] 14:44:00* Test Item Value Reference Range Interpretation [...] CA) 8.8 mg/dL 8.5-10.1 N HEPATIC FUNCTION [id number] 14:44:00* Test Item Value Reference Range Interpretation [...] reference range due to change in reagent. [id number] 14:44:00* Test Item Value Reference Range Interpretation Comments LIPASE (test code = LIP) 36 U/L 73.0-393.0 L HCG SERUM [id number] 14:44:00* Test Item Value Reference Range Interpretation Comments HCG SERUM QUAL (test code = HCGQL) NEGATIVE NEGATIVE This HCGQL test is NOT applicable for MALE patients.Check with nurse about probable order error.If Tumor Marker Test needed, nurse should order test "HCGTU"(Test #550.24535) BASIC METABOLIC [id number] 14:27:00* Test Item Value Reference Range Interpretation [...] code = CA) mg/dL 8.5-10.1 HEPATIC FUNCTION [id number] 14:27:00* Test Item Value Reference Range Interpretation [...] TOTAL (test code = ALKP) IUnit/L 45-117 [id number] 14:27:00* Test Item Value Reference Range Interpretation Comments LIPASE (test code = LIP) U/L 73.0-393.0 HCG SERUM [id number] 14:27:00* Test Item Value Reference Range Interpretation Comments HCG SERUM QUAL (test code = HCGQL) NEGATIVE NEGATIVE This HCGQL test is NOT applicable for MALE patients.Check with nurse about probable order error.If Tumor Marker Test needed, nurse should order test "HCGTU"(Test #550.52040) - US TRANSVAGINAL NON [id number] 14:27:00 Name: GONZALEZ JEFFERS [facility] : 1975 Age/S: 43 / F [address] [facility] Unit #: [id number] Loc: [place] [address] Phys: Flor Santa NP Acct: [id number] Dis Date: Status: REG ER PHONE #: [phone] Exam Date: 06/16/2019 0079 FAX #: [phone] Reason: Pelvic Pain EXAMS: CPT CODE: [id number] [place] [address] HISTORY: Endovaginal bleeding. COMPARISON: Ultrasound from March [...] Flor Santa NP Technologist: MARSHALL KEENAN RT(R),RDMS Trnhib Date/Time: 019 (1428) t.SDR.TH4 Orig Print D/T: S: 06/16/2019 (5657) Probe: [id number] PAGE 1 Signed Report - DUP AB/PEL/SC [id number] 14:27:00 Name: GONZALEZ JEFFERS [facility] : 1975 Age/S: 43 / F [address] [facility] Unit #: [id number] Loc: [place] [address] Phys: Kristina Santa NP Acct: [id number] Di s Date: Status: REG ER PHONE #: Exam Date: 06/16/2019 1351 FAX #: Reason: PELVIC PAIN EXAMS: CPT CODE: [id number] DUP AB/PEL/SC COMP 46256 HISTORY: Endovaginal blee ding. COMPARISON: Ultrasound from [...] Flor Santa NP Technologist: MARSHALL KEENAN RT(R),RDMS Trnhib Date/Time: 019 (1917) t.SDR.TH4 Orig Print D/T: S: 06/16/2019 (3642) Probe: PAGE 1 Signed Report BASIC METABOLIC [id number] 14:26:00* Test Item Value Reference Range Interpretation [...] code = CA) mg/dL 8.5-10.1 HEPATIC FUNCTION [id number] 14:26:00* Test Item Value Reference Range Interpretation [...] TOTAL (test code = ALKP) IUnit/L 45-117 [id number] 14:26:00* Test Item Value Reference Range Interpretation Comments LIPASE (test code = LIP) U/L 73.0-393.0 HCG SERUM [id number] 14:26:00* Test Item Value Reference Range Interpretation Comments HCG SERUM QUAL (test code = HCGQL) NEGATIVE NEGATIVE This HCGQL test is NOT applicable for MALE patients.Check with nurse about probable order error.If Tumor Marker Test needed, nurse should order test "HCGTU"(Test #550.89959) - US PELVIS [id number] 14:20:00 Name: GONZALEZ JEFFERS [facility] : 1975 Age/S: 43 / F [address] [facility] Unit #: [id number] Loc: [place] [address] Phys: Flor Santa NP Acct: [id number] Dis Date: Status: REG ER PHONE #: [phone] Exam Date: 06/16/2019 7120 FAX #: [phone] Reason: PELVIC PAIN EXAMS: CPT CODE: [id number] US PELVIS COMPLETE 93078 HISTORY: Endovaginal bleeding. COMPARISON: Ultrasound from March [...] and signed by: Asa Schmidt M.D. CC: lFor Santa NP Technologist: MARSHALL KEENAN RT(R),[facility] Date/Time: 019 (1420) t.SUMEETR.TH4 Orig Print D/T: S: 06/16/2019 (4462) Probe: PAGE 1 Signed Report
[2020-07-03] VITALS (8 sets, daily range): BP systolic 119–136; BP diastolic 68–85
[2020-07-03] MEDS ORDERED: ACETAMINOPHEN 325 MG TAB PO PRN
[2020-07-03] MEDS ORDERED: POTASSIUM CHLORIDE 10MEQ EA PO ONE
[2020-07-03] MEDS ORDERED: ONDANSETRON HCL INJ 2MG/ML 2ML 2 MG/ML VIAL IV PRN
[2020-07-03] MEDS: CEFTRIAXONE SOD 1 GM/NS 50 ML 50 ML IV SCH (00:57)
[2020-07-03] MEDS: IRON-VITAMIN-MINERAL CAPSULE PO SCH ×2 (01:11→08:39)
[2020-07-03 04:06] LABS: EOSINOPHILS % (MANUAL) 1 % (0-7); LYMPHOCYTES % (MANUAL) 31 % (19-48); MONOCYTES % (MANUAL) 6 % (3.4-9.0); NEUTROPHILS % (MANUAL) 62 % (40-74)
[2020-07-03 04:07] LABS: HYPOCHROMASIA MARKED; MICROCYTOSIS SLIGHT
[2020-07-03 04:08] LABS: PLATELET ESTIMATE SLIGHTLY INCREASED; PLATELET MORPHOLOGY COMMENT NORMAL
[2020-07-03 06:21] LABS: BASOPHILS % 0.2 % (0.0-1.0); EOSINOPHILS # (AUTO) 0.1 (0.0-0.4); EOSINOPHILS % 2.4 % (0.0-6.0); LYMPHOCYTES # (AUTO) 1.4 (1.0-3.2); LYMPHOCYTES % 28.4 % (18.0-39.1); MEAN CORPUSCULAR HEMOGLOBIN 13.4 pg (28-32); MONOCYTES # (AUTO) 0.3 (0.2-0.8); MONOCYTES % 6.3 % (4.4-11.3); NEUTROPHILS # (AUTO) 3.1 (2.1-6.9); NEUTROPHILS % 62.5 % (38.7-80.0); PLATELET COUNT 233 x10e3/uL (140-360); RED BLOOD COUNT 3.43 x10e6/uL (3.6-5.1); RED CELL DISTRIBUTION WIDTH 22.5 % (11.7-14.4)
[2020-07-03 06:34] LABS: ANION GAP 11.5 mmol/L (8-16); BLOOD UREA NITROGEN 10 mg/dL (7-26); BUN/CREATININE RATIO 16 (6-25); CALCIUM 8.4 mg/dL (8.4-10.2); CARBON DIOXIDE 24 mmol/L (22-29); CHLORIDE 105 mmol/L (98-107); CREATININE, SERUM 0.62 mg/dL (0.57-1.11); EST GLOMERULAR FILTRATION RATE > 60 ML/MIN (60-); GLUCOSE 117 mg/dL (74-118); POTASSIUM 3.5 mmol/L (3.5-5.1); SODIUM 137 mmol/L (136-145)
--- NOTE | 2020-07-03 07:05 | NUR ---
Bed side report received from Korey SILVA. Patient received lying in bed, HOB elevated 30 degrees in no acute distress. Patient stated no current needs. Patient educated on fall risk precautions and call with needs. Call light and belongings nearby. Will continue to monitor.
[2020-07-03 07:24] LABS: HEMATOCRIT 19.2 % (34.2-44.1); HEMOGLOBIN 4.6 g/dL (12.0-16.0)
[2020-07-03] MEDS ORDERED: SODIUM CHLORIDE 0.9% 250ML 250 ML ONE (07:57)
[2020-07-03] MEDS: FAMOTIDINE 20 MG TAB PO SCH ×2 (08:39→16:34)
--- NOTE | 2020-07-03 09:51 | NUR ---
Dr. Guadarrama spoke w/ CM stating pt continues to have bleeding, and was changed to inpatient status.
--- NOTE | 2020-07-03 10:16 | History and Physical ---
CHIEF COMPLAINT: Increasing shortness of breath. Severe symptomatic anemia of hemoglobin and hematocrit of 5.5 and 23.2. Dizziness. HISTORY OF PRESENT ILLNESS: This is a 44-year-old female with heavy cycle, but more importantly the patient has been bleeding for the past 6 months. She had multiple blood transfusions in the past. Last blood transfusion was at [facility] recently. The patient did multiple blood transfusions and when she left the hospital, she was still having vaginal bleed. She subsequently had some visit with her JET DYEING MACHINE OPERATOR, Dr. Vu in [place] and when blood work was done, her hemoglobin was around 5. However, hemoglobin and hematocrit here is 4.6 and 19.2. The patient is starting on her first unit of blood transfusion. She had ordered for 2 units. The patient is stating that she has 3 kids and she did have tubal ligation. She is wanting to have a hysterectomy. The patient could not convince JET DYEING MACHINE OPERATOR previously to have the procedure done. The patient is still bleeding. PAST MEDICAL HISTORY: Vaginal bleed with heavy cycle. She had blood transfusions repeatedly. SOCIAL HISTORY: The patient does not smoke or use alcohol. No regular drugs. ALLERGIES: NO KNOWN ALLERGIES. HOME MEDICATIONS: None. PHYSICAL EXAMINATION: VITAL SIGNS: Temperature is 98, blood pressure 132/82, pulse rate is 78, respirations 24. GENERAL: The patient seems comfortable. She is not in any distress. HEENT: Normocephalic and atraumatic. Anicteric. NECK: Supple grossly. PULMONARY: Diminished breath sounds bilaterally. CARDIOVASCULAR: Regular rate and rhythm. ABDOMEN: Obese, non-distention. Generalized discomfort in the suprapubic area, pressure, vaginal bleed. EXTREMITIES: No cyanosis or edema. NEUROLOGIC: No gross focal deficit. LABORATORY DATA: Sodium is 137, potassium 3.5, chloride 105, bicarb 24, BUN 10, creatinine 0.6, glucose 170. WBC is 4.9, hemoglobin 4.6, hematocrit 19.2, and platelets is 233. INR is 0.9. Liver enzyme is unremarkable. Chest x-ray, no consolidation. IMPRESSION: 1. Chronic anemia secondary to vaginal bleed, off and on intensity, but more recently more perfused and everyday bleeding when heavy menstruation on a monthly basis. 2. Symptomatic anemia with increasing shortness of breath with severe low hemoglobin and hematocrit. 3. Recurrent blood transfusions. PLAN: Go ahead and transfuse the patient 2 units of blood. Started already iron infusion. I would like to see if I can get a JET DYEING MACHINE OPERATOR to see this patient for further planning on possible hysterectomy per the patient wishes, which she does need because of prolonged vaginal bleeding and then intensify when her menstruation occur. I would like to go ahead and get an abdominal and pelvic ultrasound for the patient. We will follow up on the patient results. MD CHARLY Estrada/MODL /[id number]
[2020-07-03 11:21] LABS: HYPOCHROMASIA MARKED
[2020-07-03 11:22] LABS: ANISOCYTOSIS MODERATE; ELLIPTOCYTE, RBC SLIGHT
[2020-07-03 11:24] LABS: MICROCYTOSIS SLIGHT; PLATELET ESTIMATE ADEQUATE; RBC MORPHOLOGY COMMENT ABNORMAL; TEAR DROP CELLS FEW
[2020-07-03 11:25] LABS: PLATELET MORPHOLOGY COMMENT FEW LARGE
[2020-07-03] MEDS: IRON SUCROSE 100 MG in SODIUM CHLORIDE 0.9% 100 ML 100 ML IV SCH ×2 (13:25→13:53)
[2020-07-03 16:37] LABS: BASOPHILS % 0.4 % (0.0-1.0); EOSINOPHILS # (AUTO) 0.1 (0.0-0.4); EOSINOPHILS % 2.8 % (0.0-6.0); HEMATOCRIT 26.4 % (34.2-44.1); HEMOGLOBIN 7.2 g/dL (12.0-16.0); LYMPHOCYTES # (AUTO) 1.5 (1.0-3.2); LYMPHOCYTES % 28.6 % (18.0-39.1); MEAN CORPUSCULAR HGB CONC 27.3 g/dL (31-35); MEAN CORPUSCULAR VOLUME 62.3 fL (81-99); MONOCYTES # (AUTO) 0.4 (0.2-0.8); MONOCYTES % 7.7 % (4.4-11.3); NEUTROPHILS % 59.7 % (38.7-80.0); PLATELET COUNT 217 x10e3/uL (140-360); RED BLOOD COUNT 4.24 x10e6/uL (3.6-5.1); RED CELL DISTRIBUTION WIDTH 29.9 % (11.7-14.4)
--- NOTE | 2020-07-03 19:20 | NUR ---
BEDSIDE SHIFT REPORT RECEIVED FROM DAY RN. PT IS ALERT AND ORIENTED X3. 20 G SL RT FA- SITE HEALTHY. PT IS ALERT AND ORIENTED X3. PT SLEEPING AT TIME OF REPORT. LAST HGB REPORTED 7.2 AFTER 2 UNITS OF BLOOD GIVEN ON DAY SHIFT. NEW CONSULT FOR DR ATKINS AND ARNEL. CALL LIGHT WITHIN REACH. BED LOCKED AND IN LOW POSITION.
[2020-07-04] VITALS (9 sets, daily range): BP systolic 130–145; BP diastolic 78–83
[2020-07-04] MEDS: CEFTRIAXONE SOD 1 GM/NS 50 ML 50 ML IV SCH ×2 (01:17→23:08)
[2020-07-04] MEDS ORDERED: SODIUM CHLORIDE 0.9% 250ML 250 ML ONE ×2 (01:18→13:50)
--- NOTE | 2020-07-04 05:00 | NUR ---
PT REPORT HAS CHANGED 3 PADS TODAY. INSTRUCTED HER TO LET NURSES KNOW IF BLEEDING INCREASES VAGINALLY.
[2020-07-04 05:29] LABS: BASOPHILS % 0.5 % (0.0-1.0); EOSINOPHILS # (AUTO) 0.2 (0.0-0.4); HEMATOCRIT 26.1 % (34.2-44.1); HEMOGLOBIN 7.1 g/dL (12.0-16.0); LYMPHOCYTES % 35.7 % (18.0-39.1); MEAN CORPUSCULAR HEMOGLOBIN 16.8 pg (28-32); MEAN CORPUSCULAR HGB CONC 27.2 g/dL (31-35); MEAN CORPUSCULAR VOLUME 61.8 fL (81-99); MONOCYTES # (AUTO) 0.4 (0.2-0.8); MONOCYTES % 6.5 % (4.4-11.3); NEUTROPHILS % 52.9 % (38.7-80.0); PLATELET COUNT 231 x10e3/uL (140-360); RED BLOOD COUNT 4.22 x10e6/uL (3.6-5.1); RED CELL DISTRIBUTION WIDTH 30.2 % (11.7-14.4)
[2020-07-04 05:52] LABS: ANION GAP 9.7 mmol/L (8-16); BLOOD UREA NITROGEN 6 mg/dL (7-26); BUN/CREATININE RATIO 11 (6-25); CALCIUM 8.3 mg/dL (8.4-10.2); CARBON DIOXIDE 23 mmol/L (22-29); CHLORIDE 108 mmol/L (98-107); CREATININE, SERUM 0.57 mg/dL (0.57-1.11); EST GLOMERULAR FILTRATION RATE > 60 ML/MIN (60-); GLUCOSE 96 mg/dL (74-118); POTASSIUM 3.7 mmol/L (3.5-5.1); SODIUM 137 mmol/L (136-145)
--- NOTE | 2020-07-04 07:00 | NUR ---
BEDSIDE SHIFT REPORT RECEIVED FROM PM NURSE. PT IN STABLE CONDITION. WILL CONTINUE TO MONITOR.
--- NOTE | 2020-07-04 09:31 | NUR ---
spoke with Dr. Guadarrama and informed him pt had 4 units of blood ordered but has only received 2 at this time. Pt's Hgb 7.1; Dr. Guadarrama states give pt one more unit today.
[2020-07-04] MEDS: IRON-VITAMIN-MINERAL CAPSULE PO SCH (10:12)
[2020-07-04] MEDS: IRON SUCROSE 100 MG in SODIUM CHLORIDE 0.9% 100 ML 100 ML IV SCH (10:12)
[2020-07-04] MEDS: FAMOTIDINE 20 MG TAB PO SCH ×2 (10:12→17:41)
[2020-07-04 11:01] LABS: ANISOCYTOSIS MARKED; HYPOCHROMASIA MARKED; MICROCYTOSIS SLIGHT; PLATELET ESTIMATE ADEQUATE; RBC MORPHOLOGY COMMENT ABNORMAL; SCHISTOCYTES A
[2020-07-04 11:02] LABS: ELLIPTOCYTE, RBC SLIGHT; OVALOCYTES FEW; TEAR DROP CELLS FEW
[2020-07-04 11:03] LABS: HELMET CELLS RARE; PLATELET MORPHOLOGY COMMENT FEW LARGE; POLYCHROMASIA FEW
[2020-07-04] MEDS ORDERED: ONDANSETRON HCL 4 MG ORAL DISINTEGRATING TAB PO PRN (13:15)
--- NOTE | 2020-07-04 17:21 | NUR ---
Nutrition Screen Note RD Recommendation for Physician: -Continue regular diet Plan of Care: RD following, monitoring for tolerance and adequacy Nutrition reason for involvement: Nutrition Risk Trigger Primary Diagnose(s): anemia, symptomatic anemia PMH: vaginal bleed with heavy cycle, blood transfusions Ht: 60 in Wt:172 lb BMI: 33.6 kg/m2 IBW:[address] Assessment: (07/04/20) Chart reviewed. Labs and meds reviewed. Pt is a 44 year old female admitted with anemia. No reports of recent weight loss or decreased appetite prior to admission per chart. It is recorded that pt is consuming 75-100% of meals. Will continue to monitor. Current Diet: regular Malnutrition Evaluation (07/04/20) The patient does not meet criteria for a specified degree of malnutrition at this time. Will re-evaluate at follow-up as appropriate. Diet Education Needs Assessment: Diet education not indicated. Nutrition Care Level: low Signed: Cata Harrison, RD, LD
--- NOTE | 2020-07-04 18:58 | NUR ---
WALKING ROUNDS PERFORMED, RECEIVED PT LAYING SEMI FOWLERS IN BED, AAOX3, RR EVEN AND NON-LABORED, ON ROOM AIR. NO S/.SX OF DISTRESS NOTED. MD ATKINS AT BEDSIDE TO PERFORM VAGINAL EXAM, AFTER EXAM LEFT PT LAYING SEMI FOWLERS IN BED, BED IN LOW LOCKED POSITION, SIDE RAILS UPX2, CALL LIGHT AND PHONE WITHIN REACH.
[2020-07-04] MEDS: CYANOCOBALAMIN INJ 1,000 MCG/ML VIAL IM SCH (20:03)
[2020-07-05] VITALS (8 sets, daily range): BP systolic 127–145; BP diastolic 63–83
[2020-07-05 05:08] LABS: BASOPHILS # (AUTO) 0.1 (0.0-0.1); BASOPHILS % 0.8 % (0.0-1.0); EOSINOPHILS # (AUTO) 0.3 (0.0-0.4); EOSINOPHILS % 4.3 % (0.0-6.0); HEMATOCRIT 30.2 % (34.2-44.1); HEMOGLOBIN 8.5 g/dL (12.0-16.0); LYMPHOCYTES # (AUTO) 1.8 (1.0-3.2); LYMPHOCYTES % 26.6 % (18.0-39.1); MEAN CORPUSCULAR HEMOGLOBIN 18.4 pg (28-32); MEAN CORPUSCULAR HGB CONC 28.1 g/dL (31-35); MEAN CORPUSCULAR VOLUME 65.4 fL (81-99); MONOCYTES # (AUTO) 0.4 (0.2-0.8); MONOCYTES % 5.6 % (4.4-11.3); NEUTROPHILS # (AUTO) 4.1 (2.1-6.9); NEUTROPHILS % 62.2 % (38.7-80.0); PLATELET COUNT 217 x10e3/uL (140-360); RED BLOOD COUNT 4.62 x10e6/uL (3.6-5.1); RED CELL DISTRIBUTION WIDTH 31.8 % (11.7-14.4)
--- NOTE | 2020-07-05 07:01 | NUR ---
BEDSIDE SHIFT REPORT RECEIVED FROM PM NURSE. PT IN STABLE CONDITION.
[2020-07-05] MEDS: FAMOTIDINE 20 MG TAB PO SCH ×2 (07:30→16:09)
[2020-07-05] MEDS: IRON-VITAMIN-MINERAL CAPSULE PO SCH (09:00)
[2020-07-05] MEDS: CYANOCOBALAMIN INJ 1,000 MCG/ML VIAL IM SCH (09:17)
[2020-07-05] MEDS: IRON SUCROSE 100 MG in SODIUM CHLORIDE 0.9% 100 ML 100 ML IV SCH (09:23)
--- NOTE | 2020-07-05 10:22 | Diagnostic Imaging Report ---
Exam: Pelvic ultrasound. History: Vaginal bleeding Comparison: <None.> Findings: Transabdominal and endovaginal sonographic evaluation of the pelvis. The uterus is anteverted in position, measuring 7.3 x 5.2 x 5.3cm. No uterine mass. Heterogeneous echotexture of the uterus. Endometrial stripe thickness is 4 millimeters. The right ovary measures up to 3.4 x 3.4 x 3.6 cm and contains a 4.3 x 3.1 x 3.1 cm anechoic simple cyst. Normal arterial and venous Doppler flow visualized. The left ovary is not visualized due to overlying bowel gas. Nabothian cysts in the cervix. No free fluid in the pelvis. Impression: Heterogeneous echotexture of the uterus without focal mass. Simple right ovarian cyst measures up to 4.3 cm. Normal arterial and venous Doppler waveforms. Signed by: Michael Bridges MD on 07/05/2020 10:19 AM
--- NOTE | 2020-07-05 11:01 | NUR ---
pt leaving for surgery; left in stable condition.
[2020-07-05] MEDS ORDERED: SILVER NITRATE SWABS ONE (11:36)
[2020-07-05] MEDS ORDERED: BUPIVACAINE 0.25%/EPI 30ML SDV INJ ONE (11:36)
--- NOTE | 2020-07-05 13:45 | NUR ---
PT RETURNING FROM OR, RECEIVED REPORT, PT HAD D&C AND VAGINAL SCOPE. PT HAS MESH PANTIES AND PAD IN PLACE. PT'S LAST VITAL SIGNS IN PACU 155/81, HR 60, O2 SAT 99%. IN STABLE CONDITION.
--- NOTE | 2020-07-05 13:59 | Operative Report ---
DATE OF PROCEDURE: 07/05/2020 SURGEON: Michael Cabezas MD PREOPERATIVE DIAGNOSES: Menorrhagia, severe anemia with hemoglobin down to 4.6. POSTOPERATIVE DIAGNOSES: Menorrhagia, severe anemia with hemoglobin down to 4.6, endometrial polyps and otherwise pending pathology. TITLE OF PROCEDURES: Hysteroscopy, dilatation and curettage with endometrial ablation via NovaSure. ANESTHESIA: General with Dr. Cesar and Noris Lang CRNA. INDICATION FOR OPERATION: The patient is a 44-year-old, 5, para 3-1-1-3, who has been having heavy bleeding for 4 months. She had been transfused twice and was admitted this time and given the 3rd transfusion with her hemoglobin being 4. Exam revealed a 6-week size uterus. Ultrasound revealed a 7 x 5 x 5 cm uterus with 4 mm endometrium. She was therefore taken to the operating room at this time for hysteroscopy, D and C, and endometrial ablation. FINDINGS OF SURGERY: The uterus sounded to 10 cm. Endocervical canal was 4.5 cm. There were many endometrial polyps noted. No fibroids were seen. The polyps were excised and sent to pathology with curettage. The ostia were not well visualized. We were definitely in the endometrial cavity. Current was supplied for 71 seconds with good ablation obtained. DESCRIPTION OF PROCEDURE: The patient was taken to the operating room and placed on the table in supine position. General anesthesia was administered. The patient was then placed in the lithotomy position. The perineum was prepared and draped in the usual sterile manner. Pelvic exam revealed an 8-week size mobile anteverted uterus with no adnexal masses. A weighted speculum was placed in the posterior vaginal wall. Then, with the aid of a right angle retractor, the anterior lip of the cervix was grasped with single-tooth tenaculum and hysteroscopy was performed with the finding of multiple polyps noted. The ostia were not well seen, but their location was identified. At this point, curettage was performed. The uterus had already been sounded to 10 cm with the endocervical canal 4.5 cm. Curettage was done until multiple polyps were removed and sent to pathology for definitive diagnosis. Once enough polyps have been removed, we went back in with the scope and looked around, could identify the ostia and already to proceed with ablation. Then, the NovaSure instrument was placed and ensured to be as wide as possible, which was 4.6 cm and not 4.5, as previously stated, and the NovaSure device was set on 5.5 cm in terms of a length and at this point, the integrity of the cavity was checked and found to be intact. Then, ablation was performed for 71 seconds. After the ablation was performed, the NovaSure device was removed. The endometrial cavity was inspected with the hysteroscope and there was found to be a good ablation obtained all the way up to the endocervical canal and at this point, ostia were visualized and lot of debris that was burned was noted, but a good ablation was noted overall. So at this point, the procedure was deemed terminated. All the fluid and instruments were removed from the vagina. There was some bleeding at the tenaculum site, which was treated with cautery and then silver stick with good cessation of bleeding. There were no complications noted. Estimated blood loss was 25 mL. The fluid deficit on hysteroscopy was 410 mL. The patient tolerated the procedure well and was transferred from the operating room to recovery room in stable condition. Michael Cabezas MD [facility]/MODL /[id number] cc: Tristan Guadarrama MD
--- NOTE | 2020-07-05 15:45 | NUR ---
PT C/O PAIN. PAGED DR. HINKLE FOR ORDERS; DR. FRY PICKED UP BUT STATED HE WILL CALL BACK. SPOKE WITH DR. ATKINS WHO STATES DR. FRY WANTED TO PUT PT ON CELEBREX FOR PAIN. WILL WAIT FOR ANG TO CALL BACK. MILLY STATES IF UNABLE TO GET IN TOUCH WITH ANG, HE WILL GIVE ORDER FOR CELEBREX FOR PAIN, AND TYLENOL #3 IF PAIN SEVERE.
[2020-07-05] MEDS: CELECOXIB 100 MG CAP PO SCH (16:11)
--- NOTE | 2020-07-05 19:10 | NUR ---
RECEIVED REPORT FROM PREVIOUS NURSE. CALL LIGHT WITHIN REACH. PATIENT IN BED.
[2020-07-05] MEDS ORDERED: LIDOCAINE HCL 2% LOCAL INJ 5 ML SDV VIAL INJ ONE (21:46)
[2020-07-05] MEDS ORDERED: PROPOFOL IV EMULSION 10 MG/ML 20 ML VIAL ONE (21:46)
[2020-07-05] MEDS ORDERED: ONDANSETRON HCL INJ 2MG/ML 2ML 2 MG/ML VIAL ONE (21:46)
[2020-07-05] MEDS ORDERED: DEXAMETHASONE SOD PHOS INJ 4 MG/ML VIAL ONE (21:46)
[2020-07-05] MEDS ORDERED: LIDOCAINE HCL 2% JELLY 5 ML TUBE ONE (21:46)
[2020-07-05] MEDS ORDERED: SEVOFLURANE INHAL SOLN 250 ML PEN BTL ONE (21:46)
[2020-07-05] MEDS: CEFTRIAXONE SOD 1 GM/NS 50 ML 50 ML IV SCH (23:50)
[2020-07-06] VITALS: BP 127/64
[2020-07-06 04:00] VITALS: BP 130/64
[2020-07-06 05:14] LABS: BASOPHILS % 0.2 % (0.0-1.0); EOSINOPHILS % 0.2 % (0.0-6.0); HEMATOCRIT 31.2 % (34.2-44.1); HEMOGLOBIN 9.1 g/dL (12.0-16.0); LYMPHOCYTES # (AUTO) 1.3 (1.0-3.2); LYMPHOCYTES % 12.3 % (18.0-39.1); MEAN CORPUSCULAR HGB CONC 29.2 g/dL (31-35); MEAN CORPUSCULAR VOLUME 68.4 fL (81-99); MONOCYTES # (AUTO) 0.3 (0.2-0.8); MONOCYTES % 3.3 % (4.4-11.3); NEUTROPHILS # (AUTO) 8.5 (2.1-6.9); NEUTROPHILS % 83.4 % (38.7-80.0); PLATELET COUNT 244 x10e3/uL (140-360); RED BLOOD COUNT 4.56 x10e6/uL (3.6-5.1); RED CELL DISTRIBUTION WIDTH 33.9 % (11.7-14.4)
[2020-07-06 06:48] LABS: HYPOCHROMASIA MODERATE
[2020-07-06 06:49] LABS: ANISOCYTOSIS MARKED; POLYCHROMASIA FEW; RBC MORPHOLOGY COMMENT ABNORMAL
[2020-07-06 06:54] LABS: MICROCYTOSIS SLIGHT
[2020-07-06 06:55] LABS: ELLIPTOCYTE, RBC SLIGHT; OVALOCYTES FEW; PLATELET ESTIMATE ADEQUATE; PLATELET MORPHOLOGY COMMENT FEW LARGE; POIKILOCYTOSIS SLIGHT
[2020-07-06 07:00] VITALS: BP 123/67
--- NOTE | 2020-07-06 07:03 | NUR ---
GAVE BEDSIDE SHIFT REPORT TO ONCOMING NURSE. CALL LIGHT WITHIN REACH. PATIENT IN BED. HOURLY ROUNDING PERFORMED.
[2020-07-06 07:55] VITALS: BP 123/67
[2020-07-06] MEDS: FAMOTIDINE 20 MG TAB PO SCH (08:32)
[2020-07-06] MEDS: IRON-VITAMIN-MINERAL CAPSULE PO SCH (08:32)
[2020-07-06] MEDS: CYANOCOBALAMIN INJ 1,000 MCG/ML VIAL IM SCH (08:32)
[2020-07-06] MEDS: CELECOXIB 100 MG CAP PO SCH (08:32)
--- NOTE | 2020-07-06 09:42 | Discharge Summary ---
CONSULTING PHYSICIAN: Michael Cabezas MD FINAL DIAGNOSES: 1. Severe symptomatic acute on chronic anemia secondary to vaginal bleed. 2. Status post hysteroscopy with dilation and curettage and ablation. 3. Status post 3 units blood transfusion. 4. Status post iron infusion. SUMMARY: The patient is a 44-year-old female, who had multiple blood transfusion previously, also vaginal bleed for months, was seen her SOFTWARE DESIGN ANALYST outpatient. At one point, the patient did receive blood transfusion, but when she is at home, persistently bleed. The patient was recently admitted to [facility], was given blood transfusion and was discharged home to follow up with her SOFTWARE DESIGN ANALYST. She came in this time again with vaginal bleeding and severe. Hemoglobin and hematocrit of 4.6 and 19.2. The patient did receive 3 units blood transfusion, hemoglobin and hematocrit now is 9.1 and 31.2. The patient did receive iron infusion as well. The patient is otherwise stable. She underwent the procedures as mentioned to stop the bleeding. Currently, the patient has no bleed. She is stable. She is comfortable. She will go home with iron, stool softener and B12. The patient to follow with Dr. Cabezas, her SOFTWARE DESIGN ANALYST in approximately 1-2 weeks. The patient may follow up with me in approximately 1-2 weeks for blood work, if she wishes. She may follow up with her family physician. DISCHARGE MEDICATIONS: As follows: 1. Hemocyte Plus one tablet twice a day. 2. B12 1000 mcg sublingual daily. 3. Colace 100 mg b.i.d. DISCHARGE FOLLOWUP: Instruction for the patient to follow up as above. DISCHARGE ACTIVITY: As tolerated. DISCHARGE DIET: Regular diet. MD CHARLY Estrada/LIDIA /[id number]
[2020-07-06] MEDS ORDERED: HEMOCYTE PLUS1 EACH PO (10:40)
[2020-07-06] MEDS ORDERED: COLACE100 MG PO (10:40)
[2020-07-06] MEDS ORDERED: B12 ACTIVE1000 MCG SL (10:43)
== END 2020-07-06 10:38 | disposition home or self-care (01) | DRG 742 ==
LOC: ER 21:19 → ERHOLD 23:42 → MED/SURG 07-03 02:02 → OBSVTOIN 07-03 09:42
PROVIDERS: ADMIT Internal Medicine; ATTEND Internal Medicine
PROC: 30233N1 Transfusion of Nonautologous Red Blood Cells into Peripheral Vein, Percutaneous Approach (ICD-10-PCS; 2020-07-03)
PROC: 0UDB8ZZ Extraction of Endometrium, Via Natural or Artificial Opening Endoscopic (ICD-10-PCS; 2020-07-05)
PROC: 0U5B8ZZ Destruction of Endometrium, Via Natural or Artificial Opening Endoscopic (ICD-10-PCS; principal; 2020-07-05 11:52)
DX: N84.0 Polyp of corpus uteri (principal); D62 Acute posthemorrhagic anemia; N92.0 Excessive and frequent menstruation with regular cycle; D64.9 Anemia, unspecified; Z11.59 Encounter for screening for other viral diseases
CPT/HCPCS: 36415; 71046; 76830; 76856; 80048; 80053; 81001; 82550; 82553; 82607; 82746; 84484; 84702; 85025; 85610; 85730; 86850; 86900; 86920; 88305; 93005; 99284; G0378; J0696; J1100; J1756; J2001; J2405; J3420; J7050; P9016; U0002

== ENCOUNTER → 2023-02-01 | Outpatient (CLI) | payer BC ==
[~2023-02-01] MED LIST: B12 ACTIVE1000 MCG SL; COLACE100 MG PO; HEMOCYTE PLUS1 EACH PO
== END ==
LOC: US 08:37
PROVIDERS: ATTEND Obstetrics & Gynecology
DX: N93.9 Abnormal uterine and vaginal bleeding, unspecified (principal)
CPT/HCPCS: 76830; 76856